=== PATIENT | male | born 1960 ===

== ENCOUNTER 2017-02-04 09:04 | Day surgery (SDC) | payer MEDICAID ==
[2017-02-04] MEDS ORDERED: Lidocaine Hydrochloride 5 ML INJ ONE (10:33)
[2017-02-04] MEDS ORDERED: Propofol 10 mg/ml Inj (20 ML) ONE (10:33)
[2017-02-04 10:39] VITALS: O2SAT 100
[2017-02-04 11:40] VITALS: RESP 16
[2017-02-06 10:03] VITALS: BP 130/74; PULSE 58; TEMP 97.4
== END 2017-02-04 13:05 | disposition home or self-care (01) ==
LOC: C.ENDO 09:04
PROVIDERS: ATTEND Internal Medicine
DX: D12.2 Benign neoplasm of ascending colon (principal); D12.4 Benign neoplasm of descending colon; D12.5 Benign neoplasm of sigmoid colon; K57.30 Diverticulosis of large intestine without perforation or abscess without bleeding; K64.8 Other hemorrhoids
CPT/HCPCS: 45385; 88305; J2704